=== PATIENT | female | born 1980 | race African-American/Black ===

== ENCOUNTER 2016-09-11 16:24 | Emergency (ER) | payer BC, OTHER ==
[2016-09-11] MEDS ORDERED: ASPIRIN 81 MG TABLET, CHEWABLE PO ONE (16:42)
--- NOTE | 2016-09-11 16:42 | ER Document Report ---
ED Medical Screen (RME) - General Stated Complaint: CHEST PAIN Mode of Arrival: Ambulatory Information source: Patient Notes: Patient presents to the emergency department with chest pain and pain going down her left arm. History of ME patient is a diabetic. EKG SRCherise I have greeted and performed a rapid initial assessment of this patient. A comprehensive ED assessment and evaluation of the patient, analysis of test results and completion of the medical decision making process will be conducted by additional ED providers. TRAVEL OUTSIDE OF THE [place] IN LAST 30 DAYS: No - Related Data Allergies/Adverse Reactions: metformin Allergy (Verified 10/26/15 15:04) Past Medical History - Past Medical History Cardiac Medical History: Reports: Hx Congestive Heart Failure, Hx Hypercholesterolemia, Hx Hypertension Endocrine Medical History: Reports: Hx Diabetes Mellitus Type 2 Renal/ Medical History: Reports: Hx Ovarian Cysts - PCF with GI Medical History: Reports: Hx Gastroesophageal Reflux Disease, Hx Colonoscopy - 2006 Psychiatric Medical History: Denies: Hx Depression Past Surgical History: Reports: Hx Gynecologic Surgery - Dermoid cyst removed - Immunizations Hx Diphtheria, Pertussis, Tetanus Vaccination: Yes Physical Exam - Vital signs Vitals: Temp Pulse Resp BP Pulse Ox 98 F 81 18 142/84 H 95 09/11/16 16:29 09/11/16 16:29 09/11/16 16:29 09/11/16 16:29 09/11/16 16:29 Course - Vital Signs Vital signs: Temp Pulse Resp BP Pulse Ox 98 F 81 18 142/84 H 95 09/11/16 16:29 09/11/16 16:29 09/11/16 16:29 09/11/16 16:29 09/11/16 16:29
[2016-09-11 17:28] LABS: APPEARANCE,URINE SLIGHTLY-CLOUDY; BILIRUBIN,URINE NEGATIVE (NEGATIVE); GLUCOSE, URINE 50 mg/dL (NEGATIVE); KETONES,URINE NEGATIVE (NEGATIVE); LEUKOCYTE ESTERASE,URINE MODERATE (NEGATIVE); NITRITE,URINE NEGATIVE (NEGATIVE); PROTEIN,URINE NEGATIVE (NEGATIVE); URINE SPECIFIC GRAVITY 1.019; UROBILINOGEN,URINE NEGATIVE mg/dL (<2.0)
[2016-09-11 17:29] LABS: ABSOLUTE BASOPHILS # (AUTO) 0.1 10^3/uL (0.0-0.2); ABSOLUTE EOSINOPHILS # (AUTO) 0.2 10^3/uL (0.0-0.6); ABSOLUTE LYMPHOCYTES (AUTO) 2.3 10^3/uL (0.5-4.7); ABSOLUTE MONOCYTES (AUTO) 0.5 10^3/uL (0.1-1.4); BASOPHILS % (AUTO) 0.9 % (0-2); EOSINOPHILS % (AUTO) 2.1 % (0-6); HEMATOCRIT 37.3 % (36.0-47.0); HEMOGLOBIN 11.4 g/dL (12.0-15.5); HGB HCT DIFFERENCE -3.1; LYMPHOCYTES % (AUTO) 28.6 % (13-45); MEAN CORPUSCULAR HEMOGLOBIN 25.8 pg (27.0-33.4); MEAN CORPUSCULAR HGB CONC 30.5 g/dL (32.0-36.0); MEAN CORPUSCULAR VOLUME 85 fl (80-97); MONOCYTES % (AUTO) 6.1 % (3-13); RED BLOOD COUNT 4.41 10^6/uL (3.72-5.28); RED CELL DISTRIBUTION WIDTH 14.8 % (11.5-14.0); SEGMENTED NEUTROPHILS % (AUTO) 62.3 % (42-78)
[2016-09-11 17:43] LABS: ALANINE AMINOTRANSFERASE 30 U/L (9-52); ALBUMIN 4.2 g/dL (3.5-5.0); ALKALINE PHOSPHATASE 108 U/L (38-126); ANION GAP 13 (5-19); ASPARTATE AMINO TRANSFERASE 19 U/L (14-36); BILIRUBIN,TOTAL 0.5 mg/dL (0.2-1.3); BLOOD UREA NITROGEN 11 mg/dL (7-20); CALCIUM 10.3 mg/dL (8.4-10.2); CARBON DIOXIDE 28 mmol/L (22-30); CHLORIDE 97 mmol/L (98-107); CREATINE KINASE 95 U/L (30-135); CREATININE RESULT 0.76 mg/dL (0.52-1.25); GLUCOSE 221 mg/dL (75-110); LIPASE 174.1 U/L (23-300); POTASSIUM 4.5 mmol/L (3.6-5.0); TOTAL PROTEIN 8.2 g/dL (6.3-8.2)
[2016-09-11 17:55] LABS: CREATINE KINASE MB 0.82 ng/mL (<4.55); TROPONIN I 0.016 ng/mL
[2016-09-11] MEDS: NITROGLYCERIN 0.4 MG/TAB 25 TAB/BOTTLE SL PRN ×2 (18:37→18:40)
[2016-09-11] MEDS ORDERED: CLOPIDOGREL BISULFATE 300 MG TABLET PO ONE (19:24)
[2016-09-11] MEDS ORDERED: METOPROLOL TARTRATE PF/INJ 5 MG/5 ML SDV IV PRN (19:24)
--- NOTE | 2016-09-11 19:24 | EKG REPORT ---
SEVERITY:- NORMAL ECG - SINUS RHYTHM : Confirmed by: Billie Geller MD 11-Sep-2016 19:23:21
[2016-09-11] MEDS ORDERED: ENOXAPARIN SODIUM INJ 120 MG/0.8 ML DISP.SYRIN SUBCUT SCH (19:30)
[2016-09-11 21:10] LABS: CREATINE KINASE MB 0.75 ng/mL (<4.55); TROPONIN I 0.016 ng/mL
--- NOTE | 2016-09-11 21:57 | ER Document Report ---
ED General - General Chief Complaint: Chest Pain Stated Complaint: CHEST PAIN Mode of Arrival: Ambulatory Notes: Sharif is a 35-year-old female with history of insulin-dependent diabetes mellitus, hypertension, history of OR, recent failed stress test in April 2016 who presents complaining of substernal chest pain radiating down the left arm intermittently throughout the day today. Pain began at rest. She's had similar pain before, related to her prior OR. She states she was told in April that she needed to have a catheterization but she did not follow-up as instructed. At this time she is still complaining of 2 out of 5 chest pain. No leg pain or swelling. No personal history of DVT. No recent immobilization. TRAVEL OUTSIDE OF THE [place] IN LAST 30 DAYS: No - Related Data Allergies/Adverse Reactions: metformin Allergy (Verified 10/26/15 15:04) Past Medical History - General Information source: Patient Cannot obtain history due to: Altered mental status - Social History Smoking Status: Never Smoker Chew tobacco use (# tins/day): No Frequency of alcohol use: None Drug Abuse: None Family History: CAD, CVA, DM, Hyperlipidemia, Hypertension - Father has hypertension Patient has suicidal ideation: No Patient has homicidal ideation: No - Past Medical History Cardiac Medical History: Reports: Hx Congestive Heart Failure, Hx Heart Attack, Hx Hypercholesterolemia, Hx Hypertension Endocrine Medical History: Reports: Hx Diabetes Mellitus Type 2 Renal/ Medical History: Reports: Hx Ovarian Cysts - PCF with. Denies: Hx Peritoneal Dialysis GI Medical History: Reports: Hx Gastroesophageal Reflux Disease, Hx Colonoscopy - 2006 Psychiatric Medical History: Denies: Hx Depression Past Surgical History: Reports: Hx Gynecologic Surgery - Dermoid cyst removed - Immunizations Hx Diphtheria, Pertussis, Tetanus Vaccination: Yes Review of Systems - Review of Systems Constitutional: denies: Fever EENT: denies: Throat pain Cardiovascular: Chest pain. denies: Palpitations, Syncope Respiratory: denies: Cough, Short of breath Gastrointestinal: denies: Abdominal pain, Vomiting Musculoskeletal: denies: Leg swelling Skin: denies: Rash Neurological/Psychological: denies: Numbness, Tingling Physical Exam - Vital signs Vitals: Temp Pulse Resp BP Pulse Ox 98 F 81 18 142/84 H 95 09/11/16 16:29 09/11/16 16:29 09/11/16 16:29 09/11/16 16:29 09/11/16 16:29 - General General appearance: Appears well, Alert In distress: None - HEENT Head: Normocephalic Pupils: PERRL Mouth/Lips: Normal Pharynx: Normal Neck: Normal - Respiratory Respiratory status: No respiratory distress Breath sounds: Normal - Cardiovascular Rhythm: Regular Murmur: No - Abdominal Inspection: Normal Bowel sounds: Normal Tenderness: Nontender - Back Back: Normal - Extremities General upper extremity: Normal inspection General lower extremity: Normal inspection - Neurological Neuro grossly intact: Yes Orientation: AAOx4 - Psychological Associated symptoms: Normal affect - Skin Skin Temperature: Warm Skin Moisture: Dry Skin Color: Normal Course - Re-evaluation Re-evalutation: 09/11/16 22:01 I have advised the patient that she should be transferred to a tertiary care facility for a cardiac catheterization. She is refusing transport at this time. She states she has an appointment with the transit planning manager at [facility] on Thursday at 3:30 PM. I've advised her that I have a high concern that she may have a serious adverse event before she is able to follow-up including cardiac arrhythmia, myocardial infarction, permanent disability or . She has a family member at the bedside and is making this decision on her own accord of sound mind. She will sign out AGAINST MEDICAL ADVICE. - Vital Signs Vital signs: Temp Pulse Resp BP Pulse Ox 97.1 F 81 17 143/84 H 91 L 09/11/16 21:08 09/11/16 16:29 09/11/16 22:01 09/11/16 22:01 09/11/16 22:01 - Laboratory Result Diagrams: 09/11/16 17:00 09/11/16 17:00 Laboratory results interpreted by me: 09/11/16 09/11/16 09/11/16 17:00 17:00 17:00 Hgb 11.4 L MCH 25.8 L MCHC 30.5 L RDW 14.8 H Chloride 97 L Glucose 221 H Calcium 10.3 H Urine Glucose (UA) 50 H Ur Leukocyte Esterase MODERATE H - Diagnostic Test Radiology reviewed: Image reviewed, Reports reviewed Discharge - Discharge Clinical Impression: Cardiac ischemia, At risk for acute ischemic cardiac event, Abnormal EKG Condition: Serious Disposition: AGAINST MEDICAL ADVICE Additional Instructions: call 911 if you have any recurrence of chest pain. Follow up as scheduled with your transit planning manager WITHOUT FAIL. REturn to ER at any time if you change your mind and desire further evaluation and treatment. Forms: Return to Work
[2016-09-11 22:13] VITALS: BP 143/84
[2016-09-12] MEDS ORDERED: CLOPIDOGREL BISULFATE 75 MG TABLET PO SCH (10:00)
== END 2016-09-11 22:18 | disposition left against medical advice (07) ==
LOC: ER 16:24
DX: I25.9 Chronic ischemic heart disease, unspecified (principal); R07.9 Chest pain, unspecified; E11.9 Type 2 diabetes mellitus without complications; Z79.4 Long term (current) use of insulin; I10 Essential (primary) hypertension
CPT/HCPCS: 93005; 99285; 96372; 36415; 82553; 82550; 83690; 84703; 85025; 80053; 81001; 84484; 71020; 93010; J3490; J1650

== ENCOUNTER 2016-12-03 06:55 | Emergency (ER) | payer BC, OTHER ==
[2016-12-03 07:05] VITALS: BP 149/91
--- NOTE | 2016-12-03 07:34 | ER Document Report ---
ED General - General Chief Complaint: Flu Symptoms Stated Complaint: FLU LIKE SYMPTOMS Mode of Arrival: Ambulatory Information source: Patient Notes: 36-year-old female presents with complaints of sore throat that started yesterday with generalized body aches. Patient notes her whole body hurts. Patient has had nonproductive cough and runny nose TRAVEL OUTSIDE OF THE [place] IN LAST 30 DAYS: No - HPI Onset: Yesterday Onset/Duration: Persistent Quality of pain: Achy Severity: Mild Pain Level: 1 Associated symptoms: Body/muscle aches, Nonproductive cough Exacerbated by: Denies Relieved by: Denies Similar symptoms previously: No Recently seen / treated by doctor: No - Related Data Allergies/Adverse Reactions: metformin Allergy (Verified 12/03/16 07:34) Past Medical History - Social History Smoking Status: Never Smoker Cigarette use (# per day): No Chew tobacco use (# tins/day): No Smoking Education Provided: No Family History: CAD, CVA, DM, Hyperlipidemia, Hypertension - Father has hypertension - Past Medical History Cardiac Medical History: Reports: Hx Congestive Heart Failure, Hx Heart Attack, Hx Hypercholesterolemia, Hx Hypertension Endocrine Medical History: Reports: Hx Diabetes Mellitus Type 2 Renal/ Medical History: Reports: Hx Ovarian Cysts - PCF with. Denies: Hx Peritoneal Dialysis GI Medical History: Reports: Hx Gastroesophageal Reflux Disease, Hx Colonoscopy - 2006 Psychiatric Medical History: Denies: Hx Depression Past Surgical History: Reports: Hx Gynecologic Surgery - Dermoid cyst removed - Immunizations Hx Diphtheria, Pertussis, Tetanus Vaccination: Yes Review of Systems - Review of Systems Notes: REVIEW OF SYSTEMS: CONSTITUTIONAL : Denies fever, chills, or sweats. Admits recent illness EENT: Denies eye, ear, throat, or mouth pain or symptoms. Denies nasal or sinus congestion or discharge. Denies throat, tongue, or mouth swelling or difficulty swallowing. CARDIOVASCULAR: Denies chest pain. Denies palpitations or racing or irregular heart beat. Denies ankle edema. RESPIRATORY: Admits cough GASTROINTESTINAL: Denies abdominal pain or distention. Denies nausea, vomiting , or diarrhea. Denies blood in vomitus, stools, or per rectum. Denies black, tarry stools. Denies constipation. GENITOURINARY: Denies difficulty urinating, painful urination, burning, frequency, blood in urine, or discharge. FEMALE GENITOURINARY: Denies vaginal bleeding, heavy or abnormal periods, irregular periods. Denies vaginal discharge or odor. MUSCULOSKELETAL: Admits to body aches SKIN: Denies rash, lesions or sores. HEMATOLOGIC : Denies easy bruising or bleeding. LYMPHATIC: Denies swollen, enlarged glands. NEUROLOGICAL: Denies confusion or altered mental status. Denies passing out or loss of consciousness. Denies dizziness or lightheadedness. Denies headache. Denies weakness or paralysis or loss of use of either side. Denies problems with gait or speech. Denies sensory loss, numbness, or tingling. Denies seizures. PSYCHIATRIC: Denies anxiety or stress. Denies depression, suicidal ideation, or homicidal ideation. ALL OTHER SYSTEMS REVIEWED AND NEGATIVE. Dictation was performed using [employer] voice recognition software PHYSICAL EXAMINATION: GENERAL: Well-appearing, well-nourished and in no acute distress. HEAD: Atraumatic, normocephalic. EYES: Pupils equal round and reactive to light, extraocular movements intact, conjunctiva are normal. ENT: Nares patent, oropharynx clear without exudates. Moist mucous membranes. NECK: Normal range of motion, supple without lymphadenopathy LUNGS: Breath sounds clear to auscultation bilaterally and equal. No wheezes rales or rhonchi. HEART: Mildly tachycardic on arrival ABDOMEN: Soft, nontender, nondistended abdomen. No guarding, no rebound. No masses appreciated. Female : deferred Musculoskeletal: Normal range of motion, no pitting or edema. No cyanosis. NEUROLOGICAL: Cranial nerves grossly intact. Normal speech, normal gait. Normal sensory, motor exams PSYCH: Normal mood, normal affect. SKIN: Warm, Dry, normal turgor, no rashes or lesions noted. Physical Exam - Vital signs Vitals: Temp Pulse Resp BP Pulse Ox 98.4 F 115 H 20 149/91 H 97 12/03/16 07:01 12/03/16 07:01 12/03/16 07:01 12/03/16 07:01 12/03/16 07:01 Course - Re-evaluation Re-evalutation: 12/03/16 07:33 Patient appears in no significant distress however looks sick from probable viral syndrome lab testing pending 12/03/16 08:18 Patient has no signs of congestive heart failure exacerbation, there is no edema of the lower extremities - Vital Signs Vital signs: Temp Pulse Resp BP Pulse Ox 98.4 F 115 H 20 149/91 H 97 12/03/16 07:01 12/03/16 07:01 12/03/16 07:01 12/03/16 07:01 12/03/16 07:01 12/03/16 08:16 Strep and influenza are negative, I believe patient is a viral syndrome, she does have a dry cough with her body aches, I did explain to them my concerns for DVT PE pneumonia and other life-threatening issues After performing a Medical Screening Examination, I estimate there is LOW risk for ACUTE CORONARY SYNDROME, RESPIRATORY FAILURE, SEPSIS OR MENINGITIS, thus I consider the discharge disposition reasonable. I have reevaluated this patient multiple times and no significant life threatening changes are noted. The patient and I have discussed the diagnosis and risks, and we agree with discharging home with close follow-up. We also discussed returning to the Emergency Department immediately if new or worsening symptoms occur. We have discussed the symptoms which are most concerning (e.g., changing or worsening pain, trouble swallowing or breathing, neck stiffness, fever) that necessitate immediate return. - EKG Interpretation by Me EKG shows normal: Sinus rhythm, [place], Intervals Rate: Tachycardia Discharge - Discharge Clinical Impression: generalized body aches, Viral syndrome Condition: Stable Disposition: HOME, SELF-CARE Instructions: Viral Syndrome ([facility]) Additional Instructions: Follow up with your physician tomorrow for further care or return to the ED IMMEDIATELY if symptoms worsen or new concerns occur. If you cannot afford to follow up with your primary care physician a list of low cost clinics have been provided at the end of your discharge papers as well. Prescriptions: Naproxen 500 mg PO BID #20 tablet
[2016-12-03] MEDS ORDERED: KETOROLAC TROMETHAMINE 60 MG/2 ML SDV IM ONE (08:16)
--- NOTE | 2016-12-03 08:33 | EKG REPORT ---
SEVERITY:- BORDERLINE ECG - SINUS TACHYCARDIA PROBABLE LEFT ATRIAL ABNORMALITY : Confirmed by: Billie Geller MD 03-Dec-2016 08:31:34
== END 2016-12-03 08:31 | disposition home or self-care (01) ==
LOC: ER 06:55
DX: B34.9 Viral infection, unspecified (principal); R52 Pain, unspecified; J02.9 Acute pharyngitis, unspecified; R05 Cough; R09.89 Other specified symptoms and signs involving the circulatory and respiratory systems
CPT/HCPCS: 93005; 99283; 87070; 87880; 87804; 93010; J1885

== ENCOUNTER → 2017-01-23 | Outpatient (CLI) | payer BC, OTHER ==
--- NOTE | 2017-01-23 15:22 | RADIOLOGY REPORT (SQ) ---
EXAM DESCRIPTION: CHEST PA/LATERAL COMPLETED DATE/TIME: 01/23/2017 2:43 pm REASON FOR STUDY: SHORTNESS OF BREATH COMPARISON: 09/11/2016. EXAM PARAMETERS: NUMBER OF VIEWS: two views TECHNIQUE: Digital Frontal and Lateral radiographic views of the chest acquired. RADIATION DOSE: NA LIMITATIONS: none FINDINGS: LUNGS AND PLEURA: No opacities, masses or pneumothorax. No pleural effusion. MEDIASTINUM AND HILAR STRUCTURES: No masses or contour abnormalities. HEART AND VASCULAR STRUCTURES: Heart upper limits of normal size. No evidence for failure. BONES: No acute findings. HARDWARE: None in the chest. OTHER: No other significant finding. IMPRESSION: NO SIGNIFICANT RADIOGRAPHIC FINDING IN THE CHEST. TECHNICAL DOCUMENTATION: JOB ID: [id number] [employer]- All Rights Reserved
== END ==
LOC: OD 14:28
PROVIDERS: ATTEND Family Medicine
DX: R06.02 Shortness of breath (principal)
CPT/HCPCS: 71020

== ENCOUNTER 2017-03-05 11:25 | Emergency (ER) | payer BC, OTHER ==
[2017-03-05 11:32] VITALS: BP 154/91
--- NOTE | 2017-03-05 12:20 | ER Document Report ---
ED Respiratory Problem - General Chief Complaint: Breathing Difficulty Stated Complaint: DIZZY,COUGH,SHORTNESS OF BREATH Time Seen by Provider: 03/05/17 11:53 Mode of Arrival: Ambulatory Information source: Patient Notes: Patient is a 36-year-old female who presents to the ER today for shortness of breath, cough 1 year. Patient states that she was diagnosed with pneumonia about a year ago and has had the shortness of breath and cough ever since. She does not take anything [id number] for cough. She states that she does have an albuterol inhaler that "sometimes helps." She denies any fevers or chills. She admits to some chest pain over the left chest in one spot only that comes and goes. TRAVEL OUTSIDE OF THE [place] IN LAST 30 DAYS: No - Related Data Allergies/Adverse Reactions: metformin Allergy (Verified 03/05/17 11:29) Past Medical History - General Information source: Patient - Social History Smoking Status: Never Smoker Chew tobacco use (# tins/day): No Frequency of alcohol use: None Drug Abuse: None Family History: CAD, CVA, DM, Hyperlipidemia, Hypertension - Father has hypertension Patient has suicidal ideation: No Patient has homicidal ideation: No - Past Medical History Cardiac Medical History: Reports: Hx Congestive Heart Failure, Hx Heart Attack, Hx Hypercholesterolemia, Hx Hypertension Endocrine Medical History: Reports: Hx Diabetes Mellitus Type 2 Renal/ Medical History: Reports: Hx Ovarian Cysts - PCF with. Denies: Hx Peritoneal Dialysis GI Medical History: Reports: Hx Gastroesophageal Reflux Disease, Hx Colonoscopy - 2006 Psychiatric Medical History: Denies: Hx Depression Past Surgical History: Reports: Hx Gynecologic Surgery - Dermoid cyst removed - Immunizations Hx Diphtheria, Pertussis, Tetanus Vaccination: Yes Review of Systems - Review of Systems Constitutional: No symptoms reported EENT: No symptoms reported Cardiovascular: No symptoms reported Respiratory: See HPI Gastrointestinal: No symptoms reported Genitourinary: No symptoms reported Female Genitourinary: No symptoms reported Musculoskeletal: No symptoms reported Skin: No symptoms reported Hematologic/Lymphatic: No symptoms reported Neurological/Psychological: No symptoms reported Physical Exam - Vital signs Vitals: Temp Pulse Resp BP Pulse Ox 98.1 F 101 H 18 154/91 H 98 03/05/17 11:29 03/05/17 11:29 03/05/17 11:29 03/05/17 11:03/05/17 11:29 - Notes Notes: PHYSICAL EXAMINATION: GENERAL: Well-appearing and in no acute distress. HEAD: Atraumatic, normocephalic. EYES: Pupils equal round and reactive to light, extraocular movements intact, sclera anicteric, conjunctiva are normal. ENT: ear canals without erythema or foreign body, TMs pearly gifford with good bony landmarks, nares patent, oropharynx clear without exudates. Moist mucous membranes. NECK: Normal range of motion, supple without lymphadenopathy LUNGS: CTAB and equal. No wheezes rales or rhonchi. HEART: Regular rate and rhythm without murmurs ABDOMEN: Soft, no tenderness. No guarding, no rebound BACK: no vertebral tenderness, normal ROM GI/: no CVA tenderness EXTREMITIES: Normal range of motion, no pitting edema. No cyanosis. NEUROLOGICAL: Cranial nerves grossly intact. Normal sensory/motor exams. PSYCH: Normal mood, normal affect. SKIN: Warm, Dry, normal turgor, no rashes or lesions noted Course - Re-evaluation Re-evalutation: 03/05/17 14:43 Patient lung sounds are completely clear. Patient is not coughing during exam. She was a little tachycardic at 101 bpm, complaining of shortness of breath although her oxygen saturation is 98% on room air and she is not tachypneic, chest x-ray was clear, lab work is unremarkable today except for a slightly elevated BNP, there is no fluid on her lungs on chest x-ray nor do I hear any. I will have her follow-up with her primary care provider to diagnose pulmonary function. CTA was negative for new pulmonary embolisms. - Vital Signs Vital signs: Temp Pulse Resp BP Pulse Ox 98.1 F 101 H 18 154/91 H 98 03/05/17 11:29 03/05/17 11:29 03/05/17 11:29 03/05/17 11:29 03/05/17 11:29 - Laboratory Result Diagrams: 03/05/17 12:12 03/05/17 12:12 Laboratory results interpreted by me: 03/05/17 03/05/17 03/05/17 12:12 12:12 12:12 Hgb 11.1 L Hct 34.1 L MCH 26.7 L RDW 15.0 H Glucose 263 H AST 13 L NT-Pro-B Natriuret Pep 446 H Discharge - Discharge Clinical Impression: Shortness of breath Condition: Stable Disposition: HOME, SELF-CARE Additional Instructions: Return immediately for any new or worsening symptoms. Follow up with primary care provider, call tomorrow to make followup appointment. Prescriptions: Benzonatate [Tessalon Perle 100 mg Capsule] 100 mg PO Q8HP PRN #40 cap PRN Reason: Referrals: MADI FLORES MD [ACTIVE STAFF] - Follow up as needed
[2017-03-05] MEDS ORDERED: GUAIFENESIN/D-METHORPHAN (200-20 MG) SYRUP 10 ML PO ONE (12:37)
[2017-03-05] MEDS ORDERED: IPRATROPIUM/ALBUTEROL 0.5-2.5 MG/3 ML AMPUL NEB ONE (12:37)
[2017-03-05 12:38] LABS: ABSOLUTE EOSINOPHILS # (AUTO) 0.1 10^3/uL (0.0-0.6); ABSOLUTE MONOCYTES (AUTO) 0.4 10^3/uL (0.1-1.4); ABSOLUTE NEUT (AUTO) 4.9 10^3/uL (1.7-8.2); BASOPHILS % (AUTO) 0.5 % (0-2); EOSINOPHILS % (AUTO) 1.9 % (0-6); HEMATOCRIT 34.1 % (36.0-47.0); HEMOGLOBIN 11.1 g/dL (12.0-15.5); HGB HCT DIFFERENCE -0.8; LYMPHOCYTES % (AUTO) 27.1 % (13-45); MEAN CORPUSCULAR HEMOGLOBIN 26.7 pg (27.0-33.4); MEAN CORPUSCULAR HGB CONC 32.6 g/dL (32.0-36.0); MEAN CORPUSCULAR VOLUME 82 fl (80-97); MONOCYTES % (AUTO) 5.3 % (3-13); RED BLOOD COUNT 4.17 10^6/uL (3.72-5.28); SEGMENTED NEUTROPHILS % (AUTO) 65.2 % (42-78); WHITE BLOOD COUNT 7.5 10^3/uL (4.0-10.5)
[2017-03-05 12:47] LABS: ALANINE AMINOTRANSFERASE 26 U/L (9-52); ALBUMIN 4.2 g/dL (3.5-5.0); ALKALINE PHOSPHATASE 90 U/L (38-126); ANION GAP 15 (5-19); ASPARTATE AMINO TRANSFERASE 13 U/L (14-36); BILIRUBIN,DIRECT 0.3 mg/dL (0.0-0.4); BILIRUBIN,TOTAL 0.4 mg/dL (0.2-1.3); BLOOD UREA NITROGEN 8 mg/dL (7-20); CALCIUM 9.5 mg/dL (8.4-10.2); CARBON DIOXIDE 24 mmol/L (22-30); CHLORIDE 100 mmol/L (98-107); CREATININE RESULT 0.52 mg/dL (0.52-1.25); GLUCOSE 263 mg/dL (75-110); POTASSIUM 4.5 mmol/L (3.6-5.0); SODIUM 139.1 mmol/L (137-145); TOTAL PROTEIN 7.4 g/dL (6.3-8.2)
--- NOTE | 2017-03-05 12:48 | RADIOLOGY REPORT (SQ) ---
EXAM DESCRIPTION: CHEST PA/LAT COMPLETED DATE/TIME: 03/05/2017 12:35 pm REASON FOR STUDY: sob COMPARISON: August 2016 EXAM PARAMETERS: NUMBER OF VIEWS: two views TECHNIQUE: Digital Frontal and Lateral radiographic views of the chest acquired. RADIATION DOSE: NA LIMITATIONS: none FINDINGS: LUNGS AND PLEURA: No opacities, masses or pneumothorax. No pleural effusion. MEDIASTINUM AND HILAR STRUCTURES: No masses or contour abnormalities. HEART AND VASCULAR STRUCTURES: Heart normal size. No evidence for failure. BONES: No acute findings. HARDWARE: None in the chest. OTHER: No other significant finding. IMPRESSION: NO SIGNIFICANT RADIOGRAPHIC FINDING IN THE CHEST. TECHNICAL DOCUMENTATION: JOB ID: [id number] [employer]- All Rights Reserved
[2017-03-05 13:00] LABS: TROPONIN I < 0.012 ng/mL
--- NOTE | 2017-03-05 13:48 | RADIOLOGY REPORT (SQ) ---
EXAM DESCRIPTION: CTA CHEST COMPLETED DATE/TIME: 03/05/2017 1:31 pm REASON FOR STUDY: sob, chest pain, tachycardia COMPARISON: Chest x-ray dated 03/05/2017 TECHNIQUE: CT scan of the chest performed using helical scanning technique with dynamic intravenous contrast injection. Images reviewed with lung, soft tissue and bone windows. Reconstructed coronal and sagittal MPR images reviewed. Additional 3 dimensional post-processing performed to develop Maximal Intensity Projection images (NE P). All images stored on PACS. All CT scanners at this facility use dose modulation, iterative reconstruction, and/or weight based d osing when appropriate to reduce radiation dose to as low as reasonably achievable (ALARA). [facility]: Dose Right [facility]: CareDose [facility]: Dose Right [facility]: Teradose 4D [facility]: [employer] CONTRAST TYPE AND DOSE: contrast/concentration: Isovue 370.00 mg/ml; Total Contrast Delivered: 82.0 ml; Total Saline Delivered: 80.0 ml RENAL FUNCTION: Creatinine 0.52 RADIATION DOSE: Up-to-date CT equipment and radiation dose reduction techniques were employed. CTDIv ol: 28.3 - 52.9 mGy. DLP: 1110 mGy-cm. . LIMITATIONS: None. FINDINGS: LUNGS AND PLEURA: No masses, infiltrates, pneumothorax. No pleural effusions, calcificati ons. AORTA AND GREAT VESSELS: No aneurysm or dissection. HEART: No pericardial effusion. PULMONARY ARTERIES: No emboli visualized in the main pulmonary arteries or the segmental branches. HILAR AND MEDIASTINAL STRUCTURES: No identified masses or abnormal nodes. HARDWARE: None in the chest. UPPER ABDOMEN: No significant findings. Limited exam. THYROID AND OTHER SOFT TISSUES: No masses. No adenopathy. BONES: No acute or significant finding. 3D MIPS: Confirm above findings. OTHER: No other significant finding. IMPRESSION: NORMAL CTA OF THE CHEST. NO PULMONARY EMBOLI. TECHNICAL DOCUMENTATION: JOB ID: [id number] Quality ID # [id number]: Final reports with documentation of one or more dose reduction techniques (e.g., Au tomated exposure control, adjustment of the mA and/or kV according to patient size, use of iterative reconstruction technique) 2010 [employer]- All Rights Reserved
--- NOTE | 2017-03-06 06:04 | EKG REPORT ---
SEVERITY:- ABNORMAL ECG - SINUS RHYTHM NONSPECIFIC T ABNORMALITIES, LATERAL LEADS : Confirmed by: Billie Geller MD 06-Mar-2017 06:04:01
== END 2017-03-05 15:10 | disposition home or self-care (01) ==
LOC: ER 11:25
DX: R06.02 Shortness of breath (principal); R05 Cough; R00.0 Tachycardia, unspecified; I25.2 Old myocardial infarction; I10 Essential (primary) hypertension; E11.9 Type 2 diabetes mellitus without complications; Z87.01 Personal history of pneumonia (recurrent); R07.9 Chest pain, unspecified; Z88.8 Allergy status to other drugs, medicaments and biological substances; Z82.49 Family history of ischemic heart disease and other diseases of the circulatory system
CPT/HCPCS: 93005; 94640; 99285; 36415; 85025; 80053; 84484; 83880; 71020; 71275; 93010; J3490; J7620

== ENCOUNTER 2017-05-26 12:45 | Emergency (ER) | payer BC, OTHER ==
--- NOTE | 2017-05-26 15:56 | ER Document Report ---
ED Medical Screen (RME) - General Chief Complaint: Headache Stated Complaint: DIZZINESS,HEADACHE Time Seen by Provider: 05/26/17 15:49 Mode of Arrival: Ambulatory Information source: Patient Notes: pt is a 36 year old female with CHF who presents to the ER today for heart palpitations, fatigue and headache x a few days. She denies chest pain or shortness of breath. TRAVEL OUTSIDE OF THE [place] IN LAST 30 DAYS: No - Related Data Allergies/Adverse Reactions: metformin Allergy (Verified 05/26/17 15:51) Past Medical History - General Information source: Patient - Social History Frequency of alcohol use: Rare Drug Abuse: None - Past Medical History Cardiac Medical History: Reports: Hx Congestive Heart Failure, Hx Heart Attack, Hx Hypercholesterolemia, Hx Hypertension Endocrine Medical History: Reports: Hx Diabetes Mellitus Type 2 Renal/ Medical History: Reports: Hx Ovarian Cysts - PCF with. Denies: Hx Peritoneal Dialysis GI Medical History: Reports: Hx Gastroesophageal Reflux Disease, Hx Colonoscopy - 2006 Psychiatric Medical History: Denies: Hx Depression Past Surgical History: Reports: Hx Gynecologic Surgery - Dermoid cyst removed - Immunizations Hx Diphtheria, Pertussis, Tetanus Vaccination: Yes Review of Systems - Review of Systems Constitutional: See HPI Cardiovascular: See HPI Physical Exam - Vital signs Vitals: Temp Pulse Resp BP Pulse Ox 98.6 F 90 16 149/85 H 97 05/26/17 13:54 05/26/17 13:54 05/26/17 13:54 05/26/17 13:54 05/26/17 13:54 - Notes Notes: General: NAD CV: regular rate and rhythm, no murmurs, rubs or gallops Course - Vital Signs Vital signs: Temp Pulse Resp BP Pulse Ox 98.6 F 89 18 154/95 H 100 05/26/17 13:54 05/26/17 15:46 05/26/17 15:47 05/26/17 15:46 05/26/17 15:46
--- NOTE | 2017-05-26 17:00 | RADIOLOGY REPORT (SQ) ---
EXAM DESCRIPTION: CHEST SINGLE VIEW COMPLETED DATE/TIME: 05/26/2017 4:47 pm REASON FOR STUDY: palpitations, fatigue COMPARISON: Two-view chest 03/05/2017 CT chest 03/05/2017 EXAM PARAMETERS: NUMBER OF VIEWS: One view. TECHNIQUE: Single frontal radiographic view of the chest acquired. RADIATION DOSE: NA LIMITATIONS: None. FINDINGS: LUNGS AND PLEURA: No opacities, masses or pneumothorax. No pleural effusion. MEDIASTINUM AND HILAR STRUCTURES: No masses. Contour normal. HEART AND VASCULAR STRUCTURES: Heart normal in size. Normal vasculature. BONES: No acute findings. HARDWARE: None in the chest. OTHER: No other significant finding. IMPRESSION: NO ACUTE RADIOGRAPHIC FINDING IN THE CHEST. TECHNICAL DOCUMENTATION: JOB ID: [id number]
[2017-05-26 17:23] LABS: ABSOLUTE EOSINOPHILS # (AUTO) 0.2 10^3/uL (0.0-0.6); ABSOLUTE LYMPHOCYTES (AUTO) 2.4 10^3/uL (0.5-4.7); ABSOLUTE MONOCYTES (AUTO) 0.4 10^3/uL (0.1-1.4); ABSOLUTE NEUT (AUTO) 4.9 10^3/uL (1.7-8.2); BASOPHILS % (AUTO) 0.4 % (0-2); EOSINOPHILS % (AUTO) 2.8 % (0-6); HEMATOCRIT 38.5 % (36.0-47.0); HEMOGLOBIN 12.4 g/dL (12.0-15.5); HGB HCT DIFFERENCE -1.3; LYMPHOCYTES % (AUTO) 30.4 % (13-45); MEAN CORPUSCULAR HEMOGLOBIN 25.7 pg (27.0-33.4); MEAN CORPUSCULAR HGB CONC 32.3 g/dL (32.0-36.0); MEAN CORPUSCULAR VOLUME 80 fl (80-97); MONOCYTES % (AUTO) 5.1 % (3-13); RED BLOOD COUNT 4.84 10^6/uL (3.72-5.28); RED CELL DISTRIBUTION WIDTH 16.3 % (11.5-14.0); SEGMENTED NEUTROPHILS % (AUTO) 61.3 % (42-78)
[2017-05-26 17:37] LABS: ALANINE AMINOTRANSFERASE 30 U/L (9-52); ALBUMIN 4.6 g/dL (3.5-5.0); ALKALINE PHOSPHATASE 106 U/L (38-126); ANION GAP 14 (5-19); ASPARTATE AMINO TRANSFERASE 18 U/L (14-36); BILIRUBIN,DIRECT 0.4 mg/dL (0.0-0.4); BILIRUBIN,TOTAL 0.6 mg/dL (0.2-1.3); BLOOD UREA NITROGEN 7 mg/dL (7-20); CALCIUM 10.5 mg/dL (8.4-10.2); CARBON DIOXIDE 30 mmol/L (22-30); CHLORIDE 96 mmol/L (98-107); CREATINE KINASE 57 U/L (30-135); CREATININE RESULT 0.57 mg/dL (0.52-1.25); GLUCOSE 230 mg/dL (75-110); POTASSIUM 4.6 mmol/L (3.6-5.0); SODIUM 139.7 mmol/L (137-145); TOTAL PROTEIN 8.3 g/dL (6.3-8.2)
[2017-05-26 17:39] LABS: APPEARANCE,URINE CLOUDY; BILIRUBIN,URINE NEGATIVE (NEGATIVE); GLUCOSE, URINE >=500 mg/dL (NEGATIVE); KETONES,URINE NEGATIVE (NEGATIVE); LEUKOCYTE ESTERASE,URINE LARGE (NEGATIVE); NITRITE,URINE NEGATIVE (NEGATIVE); PROTEIN,URINE NEGATIVE (NEGATIVE); URINE SPECIFIC GRAVITY 1.017
--- NOTE | 2017-05-26 18:19 | EKG REPORT ---
SEVERITY:- BORDERLINE ECG - SINUS RHYTHM VENTRICULAR PREMATURE COMPLEX : Confirmed by: Bronson Marmolejo MD 26-May-2017 18:18:49
[2017-05-26] MEDS ORDERED: METOPROLOL SUCCINATE 25 MG TAB.SR.24H PO ONE (19:44)
[2017-05-26] MEDS ORDERED: SULFAMETHOXAZOLE/TRIMETHOPRIM 800-160 MG TABLET PO ONE (19:44)
--- NOTE | 2017-05-26 19:52 | ER Document Report ---
ED General - General Chief Complaint: Headache Stated Complaint: DIZZINESS,HEADACHE Time Seen by Provider: 05/26/17 15:49 Mode of Arrival: Ambulatory Information source: Patient TRAVEL OUTSIDE OF THE [place] IN LAST 30 DAYS: No - HPI Notes: Patient is a 36-year-old female with history of diastolic CHF with ejection fraction 50%, previous non-STEMI, insulin-dependent diabetes, presents to the emergency department with report of sensation of palpitations intermittently. She describes a palpitation sensation to me while I do notice an isolated PVC on the monitor. Patient denies any chest pain or difficulty breathing, but she does state she feels generally fatigued and intermittently dizzy and reports that she has a mild headache since cutting back on caffeine for the last 2 days. No head injury. Not the worst headache of her life. No neck stiffness or fever. Patient reports she last saw her bellows tester 3 months ago and is scheduled to see her bellows tester within the next 2 weeks. - Related Data Allergies/Adverse Reactions: metformin Allergy (Verified 05/26/17 15:51) Past Medical History - General Information source: Patient - Social History Smoking Status: Never Smoker Frequency of alcohol use: Rare Drug Abuse: None Family History: CAD, CVA, DM, Hyperlipidemia, Hypertension - Father has hypertension - Past Medical History Cardiac Medical History: Reports: Hx Congestive Heart Failure, Hx Heart Attack, Hx Hypercholesterolemia, Hx Hypertension Endocrine Medical History: Reports: Hx Diabetes Mellitus Type 2 Renal/ Medical History: Reports: Hx Ovarian Cysts - PCF with. Denies: Hx Peritoneal Dialysis GI Medical History: Reports: Hx Gastroesophageal Reflux Disease, Hx Colonoscopy - 2006 Psychiatric Medical History: Denies: Hx Depression Past Surgical History: Reports: Hx Gynecologic Surgery - Dermoid cyst removed - Immunizations Hx Diphtheria, Pertussis, Tetanus Vaccination: Yes Review of Systems - Review of Systems Notes: REVIEW OF SYSTEMS: CONSTITUTIONAL : Denies fever, chills, or sweats. Denies recent illness. EENT: Denies eye, ear, throat, or mouth pain or symptoms. Denies nasal or sinus congestion or discharge. Denies throat, tongue, or mouth swelling or difficulty swallowing. CARDIOVASCULAR: Denies chest pain. Denies ankle edema. RESPIRATORY: Denies cough, cold, or chest congestion. Denies shortness of breath, difficulty breathing, or wheezing. GASTROINTESTINAL: Denies abdominal pain or distention. Denies nausea, vomiting , or diarrhea. Denies blood in vomitus, stools, or per rectum. Denies black, tarry stools. Denies constipation. GENITOURINARY: Denies difficulty urinating, painful urination, burning, frequency, blood in urine, or discharge. FEMALE GENITOURINARY: Denies vaginal bleeding, heavy or abnormal periods, irregular periods. Denies vaginal discharge or odor. MUSCULOSKELETAL: Denies back or neck pain or stiffness. Denies joint pain or swelling. SKIN: Denies rash, lesions or sores. HEMATOLOGIC : Denies easy bruising or bleeding. LYMPHATIC: Denies swollen, enlarged glands. NEUROLOGICAL: Denies confusion or altered mental status. Denies passing out or loss of consciousness. Denies weakness or paralysis or loss of use of either side. Denies problems with gait or speech. Denies sensory loss, numbness, or tingling. Denies seizures. PSYCHIATRIC: Denies anxiety or stress. Denies depression, suicidal ideation, or homicidal ideation. ALL OTHER SYSTEMS REVIEWED AND NEGATIVE. Dictation was performed using [employer] voice recognition software -: Yes All other systems reviewed and negative Physical Exam - Vital signs Vitals: Temp Pulse Resp BP Pulse Ox 98.6 F 90 16 149/85 H 97 05/26/17 13:54 05/26/17 13:54 05/26/17 13:54 05/26/17 13:54 05/26/17 13:54 - Notes Notes: PHYSICAL EXAMINATION: GENERAL: Well-appearing, well-nourished and in no acute distress. HEAD: Atraumatic, normocephalic. EYES: Pupils equal round and reactive to light, extraocular movements intact, conjunctiva are normal. ENT: Nares patent, oropharynx clear without exudates. Moist mucous membranes. Tympanic membranes clear. NECK: Normal range of motion, supple without lymphadenopathy. No carotid bruits. LUNGS: Breath sounds clear to auscultation bilaterally and equal. No wheezes rales or rhonchi. HEART: Regular rate and rhythm without murmurs. ABDOMEN: Soft, nontender, nondistended abdomen. No guarding, no rebound. No masses appreciated. Female : deferred Musculoskeletal: Normal range of motion, no pitting or edema. No cyanosis. NEUROLOGICAL: Cranial nerves grossly intact. Normal speech, normal gait. Normal sensory, motor exams. No cerebellar ataxia. Finger to nose exam intact. PSYCH: Normal mood, normal affect. SKIN: Warm, Dry, normal turgor, no rashes or lesions noted. Course - Re-evaluation Re-evalutation: 05/26/17 19:52 Patient was given Bactrim for UTI. Urine culture was taken. Patient was watched on the radiation monitor and she had occasional isolated PVCs , not to exceed 5/min. The patient states she was recently taken off of lisinopril and started on losartan due to a persistent dry cough on the lisinopril. She denies any cough currently. She states she has been compliant with her potassium and Lasix. Blood pressure repeat was 148/82. Patient was given Toprol-XL 25 mg by mouth. No neurologic compromise and patient states her headache is very minimal and does not even require any medication. Patient is not on anticoagulation and this fits for a minor headache by her report. No evidence for congestive heart failure or acute MT or ischemia or electrolyte imbalance or anemia or evidence for . 05/26/17 20:04 Question a mild caffeine withdrawal headache. No clinical suggestion for CVA or acute intracranial injury. No suggestion for significant arrhythmia, and patient senses each of her isolated PVCs on the monitor. Patient may need a Holter monitor outpatient however. No evidence for diabetic complication. 05/26/17 20:08 - Vital Signs Vital signs: Temp Pulse Resp BP Pulse Ox 98.6 F 93 18 162/88 H 97 05/26/17 18:34 05/26/17 18:34 05/26/17 18:34 05/26/17 18:34 05/26/17 18:34 - Laboratory Result Diagrams: 05/26/17 17:06 05/26/17 17:06 Laboratory results interpreted by me: 05/26/17 05/26/17 05/26/17 17:06 17:06 17:06 MCH 25.7 L RDW 16.3 H Chloride 96 L Glucose 230 H Calcium 10.5 H Total Protein 8.3 H Urine Glucose (UA) >=500 H Urine Urobilinogen 2.0 H Ur Leukocyte Esterase LARGE H Urine Ascorbic Acid 20 H - EKG Interpretation by Me EKG shows normal: Sinus rhythm Additional EKG results interpreted by me: 05/26/17 20:00 EKG as interpreted by me showed normal sinus rhythm heart rate of 89. There is no gross evidence for acute MT or ischemia identified. There is no change from previous EKG reviewed from 03/05/17. Single PVC noted. Discharge - Discharge Clinical Impression: PVC (premature ventricular contraction) Hypertension Qualifiers: Hypertension type: essential hypertension Qualified Code(s): I10 - Essential ( primary) hypertension Urinary tract infection Qualifiers: Urinary tract infection type: acute cystitis Hematuria presence: without hematuria Qualified Code(s): N30.00 - Acute cystitis without hematuria Clinical Impression: (Ruled Out): Headache Condition: Stable Disposition: HOME, SELF-CARE Instructions: Trimethoprim-Sulfa ([facility]), Urinary Tract Infection ([facility]), PVCs ( [facility]), High Blood Pressure ([facility]) Additional Instructions: Follow-up with your bellows tester within the next week. Cut back on caffeine use slowly. Watch her blood sugars closely. Prescriptions: Metoprolol Succinate [Toprol Xl 25 mg Tab.sr] 25 mg PO DAILY #30 tab.sr.24h Sulfamethoxazole/Trimethoprim [Bactrim Ds Tablet] 1 each PO BID #14 tablet Forms: Return to Work
[2017-05-27 00:35] VITALS: BP 149/92
== END 2017-05-27 00:36 | disposition home or self-care (01) ==
LOC: ER 12:45
DX: N30.00 Acute cystitis without hematuria (principal); I49.3 Ventricular premature depolarization; I10 Essential (primary) hypertension; R51 Headache; R42 Dizziness and giddiness; I50.30 Unspecified diastolic (congestive) heart failure; I25.2 Old myocardial infarction
CPT/HCPCS: 36415; 71010; 80053; 81001; 81025; 82550; 82553; 84484; 85025; 87086; 93005; 93010; 99285

== ENCOUNTER 2017-09-18 14:47 | Emergency (ER) | payer BC ==
--- NOTE | 2017-09-18 15:40 | ER Document Report ---
ED Medical Screen (RME) - General Chief Complaint: Chest Pain Stated Complaint: CHEST PAIN Time Seen by Provider: 09/18/17 15:34 Notes: 36-year-old -Tong[place] female. History of diabetes. History of congestive heart failure. History of hypertension. History of non-ST segment elevation NC. Has not been taking her medications. Has been having pain in the chest radiating down her left arm and left shoulder for 2 days now. Also having epigastric pain. I have greeted and performed a rapid initial assessment of this patient. A comprehensive ED assessment and evaluation of the patient, analysis of test results and completion of the medical decision making process will be conducted by additional ED providers. TRAVEL OUTSIDE OF THE [place] IN LAST 30 DAYS: No - Related Data Allergies/Adverse Reactions: metformin Allergy (Verified 05/26/17 15:51) Past Medical History - Social History Frequency of alcohol use: None Drug Abuse: None - Past Medical History Cardiac Medical History: Reports: Hx Congestive Heart Failure, Hx Heart Attack - 2016, Hx Hypercholesterolemia, Hx Hypertension Endocrine Medical History: Reports: Hx Diabetes Mellitus Type 2 - insulin dependent Renal/ Medical History: Reports: Hx Ovarian Cysts - PCF with. Denies: Hx Peritoneal Dialysis GI Medical History: Reports: Hx Gastroesophageal Reflux Disease, Hx Colonoscopy - 2006 Psychiatric Medical History: Denies: Hx Depression Past Surgical History: Reports: Hx Gynecologic Surgery - Dermoid cyst removed - Immunizations Hx Diphtheria, Pertussis, Tetanus Vaccination: Yes Physical Exam - Vital signs Vitals: Temp Pulse Resp BP Pulse Ox 98.2 F 102 H 20 152/83 H 97 09/18/17 15:02 09/18/17 15:02 09/18/17 15:02 09/18/17 15:02 09/18/17 15:02 Course - Vital Signs Vital signs: Temp Pulse Resp BP Pulse Ox 98.2 F 102 H 20 152/83 H 97 09/18/17 15:02 09/18/17 15:02 09/18/17 15:02 09/18/17 15:02 09/18/17 15:02
[2017-09-18] MEDS ORDERED: ASPIRIN 81 MG TABLET, CHEWABLE PO ONE (15:41)
[2017-09-18 16:03] LABS: ABSOLUTE BASOPHILS # (AUTO) 0.1 10^3/uL (0.0-0.2); ABSOLUTE EOSINOPHILS # (AUTO) 0.1 10^3/uL (0.0-0.6); ABSOLUTE LYMPHOCYTES (AUTO) 2.3 10^3/uL (0.5-4.7); ABSOLUTE MONOCYTES (AUTO) 0.4 10^3/uL (0.1-1.4); ABSOLUTE NEUT (AUTO) 6.1 10^3/uL (1.7-8.2); BASOPHILS % (AUTO) 1.1 % (0-2); EOSINOPHILS % (AUTO) 1.2 % (0-6); HEMATOCRIT 39.9 % (36.0-47.0); HEMOGLOBIN 12.8 g/dL (12.0-15.5); LYMPHOCYTES % (AUTO) 25.6 % (13-45); MEAN CORPUSCULAR HEMOGLOBIN 27.3 pg (27.0-33.4); MEAN CORPUSCULAR VOLUME 85 fl (80-97); MONOCYTES % (AUTO) 4.4 % (3-13); PLATELET COUNT 395 10^3/uL (150-450); RED BLOOD COUNT 4.69 10^6/uL (3.72-5.28); RED CELL DISTRIBUTION WIDTH 14.7 % (11.5-14.0); SEGMENTED NEUTROPHILS % (AUTO) 67.7 % (42-78); TOTAL CELLS COUNTED % (AUTO) 100 %
[2017-09-18] MEDS ORDERED: NORMAL SALINE 500 ML IV ONE (16:06)
--- NOTE | 2017-09-18 16:41 | RADIOLOGY REPORT (SQ) ---
EXAM DESCRIPTION: CHEST SINGLE VIEW COMPLETED DATE/TIME: 09/18/2017 4:29 pm REASON FOR STUDY: chest pain COMPARISON: CT angio chest 03/05/2017 Chest films 03/05/2017, 05/26/2017 EXAM PARAMETERS: NUMBER OF VIEWS: One view. TECHNIQUE: Single frontal radiographic view of the chest acquired. RADIATION DOSE: NA LIMITATIONS: None. FINDINGS: LUNGS AND PLEURA: No opacities, masses or pneumothorax. No pleural effusion. MEDIASTINUM AND HILAR STRUCTURES: No masses. Contour normal. HEART AND VASCULAR STRUCTURES: Stable mild cardiomegaly BONES: No acute findings. HARDWARE: None in the chest. OTHER: No other significant finding. IMPRESSION: Mild cardiomegaly TECHNICAL DOCUMENTATION: JOB ID: [id number] [employer]- All Rights Reserved
--- NOTE | 2017-09-18 18:37 | EKG REPORT ---
SEVERITY:- BORDERLINE ECG - SINUS TACHYCARDIA PROBABLE LEFT ATRIAL ABNORMALITY : Confirmed by: Bronson Marmolejo MD 18-Sep-2017 18:36:01
[2017-09-18 19:07] LABS: ALANINE AMINOTRANSFERASE 29 U/L (9-52); ALBUMIN 4.1 g/dL (3.5-5.0); ALKALINE PHOSPHATASE 104 U/L (38-126); ANION GAP 12 (5-19); ASPARTATE AMINO TRANSFERASE 19 U/L (14-36); BILIRUBIN,DIRECT 0.5 mg/dL (0.0-0.4); BILIRUBIN,TOTAL 0.5 mg/dL (0.2-1.3); BLOOD UREA NITROGEN 7 mg/dL (7-20); CALCIUM 10.1 mg/dL (8.4-10.2); CARBON DIOXIDE 22 mmol/L (22-30); CHLORIDE 103 mmol/L (98-107); CREATINE KINASE 56 U/L (30-135); GLUCOSE 390 mg/dL (75-110); LIPASE 137.7 U/L (23-300); POTASSIUM 4.6 mmol/L (3.6-5.0); TOTAL PROTEIN 7.2 g/dL (6.3-8.2)
[2017-09-18 19:19] LABS: NT PRO BNP 129 pg/mL (<125)
[2017-09-18 19:21] LABS: CREATINE KINASE MB < 0.22 ng/mL (<4.55); TROPONIN I < 0.012 ng/mL
[2017-09-18] MEDS ORDERED: LIDOCAINE 5% (700 MG) TRANSDERMAL ADH..PATCH TP ONE (20:01)
[2017-09-18] MEDS ORDERED: FAMOTIDINE INJ/PF 20 MG/2 ML SDV IV ONE (20:01)
[2017-09-18] MEDS ORDERED: KETOROLAC TROMETHAMINE INJ/PF 30 MG/1 ML SDV IV ONE (20:01)
--- NOTE | 2017-09-18 20:07 | ER Document Report ---
ED General - General Chief Complaint: Chest Pain Stated Complaint: CHEST PAIN Time Seen by Provider: 09/18/17 15:34 TRAVEL OUTSIDE OF THE [place] IN LAST 30 DAYS: No - HPI Patient complains to provider of: Chest pain Notes: Patient coming in for evaluation of 1 week of chest pain worsening over the last 2 days. Patient has a significant history of CHF diabetes hospitalized in the past however. He states she does not have a PCP is ran out of all of her home medication. Patient is unable to give me a list of her home medications only able tell me that she takes something with lisinopril she was on Lasix and insulin. Patient resting comfortably upon my evaluation no signs of distress. - Related Data Allergies/Adverse Reactions: metformin Allergy (Verified 05/26/17 15:51) Past Medical History - Social History Smoking Status: Never Smoker Frequency of alcohol use: None Drug Abuse: None Family History: CAD, CVA, DM, Hyperlipidemia, Hypertension - Father has hypertension Patient has suicidal ideation: No Patient has homicidal ideation: No - Past Medical History Cardiac Medical History: Reports: Hx Congestive Heart Failure, Hx Heart Attack - 2016, Hx Hypercholesterolemia, Hx Hypertension Endocrine Medical History: Reports: Hx Diabetes Mellitus Type 2 - insulin dependent Renal/ Medical History: Reports: Hx Ovarian Cysts - PCF with. Denies: Hx Peritoneal Dialysis GI Medical History: Reports: Hx Gastroesophageal Reflux Disease, Hx Colonoscopy - 2006 Psychiatric Medical History: Denies: Hx Depression Past Surgical History: Reports: Hx Gynecologic Surgery - Dermoid cyst removed - Immunizations Hx Diphtheria, Pertussis, Tetanus Vaccination: Yes Review of Systems - Review of Systems Constitutional: No symptoms reported EENT: No symptoms reported Cardiovascular: Chest pain Gastrointestinal: No symptoms reported Genitourinary: No symptoms reported Female Genitourinary: No symptoms reported Musculoskeletal: No symptoms reported Skin: No symptoms reported Hematologic/Lymphatic: No symptoms reported Neurological/Psychological: No symptoms reported -: Yes All other systems reviewed and negative Physical Exam - Vital signs Vitals: Temp Pulse Resp BP Pulse Ox 98.2 F 102 H 20 152/83 H 97 09/18/17 15:02 09/18/17 15:02 09/18/17 15:02 09/18/17 15:02 09/18/17 15:02 Interpretation: Normal - General General appearance: Appears well, Alert - HEENT Head: Normocephalic, Atraumatic Eyes: Normal Pupils: PERRL - Respiratory Respiratory status: No respiratory distress Chest status: Nontender Breath sounds: Normal Chest palpation: Normal - Cardiovascular Rhythm: Regular Heart sounds: Normal auscultation Murmur: No - Abdominal Inspection: Normal Distension: No distension Bowel sounds: Normal Tenderness: Nontender Organomegaly: No organomegaly - Back Back: Normal, Nontender - Extremities General upper extremity: Normal inspection, Nontender, Normal color, Normal ROM , Normal temperature General lower extremity: Normal inspection, Nontender, Normal color, Normal ROM , Normal temperature, Normal weight bearing. No: Spring's sign - Neurological Neuro grossly intact: Yes Cognition: Normal Orientation: AAOx4 [place] Coma Scale Eye Opening: Spontaneous [place] Coma Scale Verbal: Oriented [place] Coma Scale Motor: Obeys Commands [place] Coma Scale Total: 15 Speech: Normal Motor strength normal: LUE, RUE, LLE, RLE Sensory: Normal - Psychological Associated symptoms: Normal affect, Normal mood - Skin Skin Temperature: Warm Skin Moisture: Dry Skin Color: Normal Course - Re-evaluation Re-evalutation: 09/19/17 00:25 The patient has atypical chest pain as the patient's chest pain is not suggestive of pulmonary embolus, cardiac ischemia, aortic dissection, or other serious etiology. Given the extremely low risk of these diagnoses further testing and evaluation for these possibilities does not appear to be indicated at this time. The patient has been instructed to return if the symptoms worsen or change in any way. Patient information was given to our social work team. Explained to patient that we will try to have them contact her is that she can establish primary care. List primary care physicians were given to the patient also the discharge medical physician on Dr. Brown was given to the patient - Vital Signs Vital signs: Temp Pulse Resp BP Pulse Ox 98.6 F 102 H 13 150/86 H 98 09/18/17 20:01 09/18/17 15:02 09/18/17 20:01 09/18/17 20:01 09/18/17 20:01 - Laboratory Result Diagrams: 09/18/17 15:49 09/18/17 18:26 Laboratory results interpreted by me: 09/18/17 09/18/17 09/18/17 15:49 18:26 18:26 RDW 14.7 H Glucose 390 H Direct Bilirubin 0.5 H NT-Pro-B Natriuret Pep 129 H Discharge - Discharge Clinical Impression: Diabetes mellitus type 1 Qualifiers: Diabetes mellitus complication status: with unspecified complications Qualified Code(s): E10.8 - Type 1 diabetes mellitus with unspecified complications Chest pain, unspecified Qualifiers: Chest pain type: unspecified Qualified Code(s): R07.9 - Chest pain, unspecified Condition: Good Disposition: HOME, SELF-CARE Instructions: Chest Wall Pain ([facility]), Chest Pain of Unclear Cause ([facility]), Family Physicians / Practices, Reflux Disease (GERD) ([facility]) Additional Instructions: Your evaluation today shows no signs of cardiac damage or infection. Please follow-up with primary care physician listed or your own primary care I will have her social services technician contact you to establish further primary care return to ER symptoms worsen. Take medication as prescribed. Prescriptions: Ibuprofen [Motrin 600 Mg Tablet] 600 mg PO TID #15 tablet Omeprazole 20 mg PO DAILY #30 capsule.dr Forms: Return to Work Referrals: BRENDA BROWN MD [ACTIVE STAFF] - Follow up in 3-5 days
[2017-09-18 20:19] VITALS: BP 150/86
== END 2017-09-18 20:26 | disposition home or self-care (01) ==
LOC: ER 14:47
DX: E10.8 Type 1 diabetes mellitus with unspecified complications (principal); R07.9 Chest pain, unspecified; I50.9 Heart failure, unspecified; I25.2 Old myocardial infarction; I10 Essential (primary) hypertension; Z79.4 Long term (current) use of insulin; Z79.899 Other long term (current) drug therapy
CPT/HCPCS: 93005; 99285; 96361; 96374; 96375; 36415; 82553; 82550; 83690; 84703; 85025; 80053; 84484; 83880; 71045; 93010; J1885; J7040; S0028